=== PATIENT | female | born 1990 | race Caucasian/White ===

== ENCOUNTER 2017-02-22 16:52 | Emergency (ER) | payer BC ==
[~2017-02-22] VITALS: Ht 160 cm; Wt 81.9 kg
[2017-02-22 16:53] VITALS: BP 136/81
[2017-02-22] MEDS ORDERED: BUPR300T49 PO (17:20)
[2017-02-22] MEDS ORDERED: MONOESSA PO (17:20)
[2017-02-22] MEDS ORDERED: FLUO10CA13 PO (17:20)
[2017-02-22] MEDS ORDERED: BLUE500T PO (17:20)
[2017-02-22] MEDS ORDERED: METF10002 PO (17:20)
[2017-02-22] MEDS ORDERED: LORA0.5T PO (17:21)
[2017-02-22] MEDS ORDERED: ONDANSETRON ODT 4 MG ONE (17:26)
[2017-02-22] MEDS ORDERED: ONDANSETRON ODT 4 MG PO ONE (17:30)
== END 2017-02-22 18:37 | disposition home or self-care (01) ==
LOC: ED 18:31
DX: S43.51XA Sprain of right acromioclavicular joint, initial encounter (principal); S40.011A Contusion of right shoulder, initial encounter; W19.XXXA Unspecified fall, initial encounter; Y93.89 Activity, other specified; Y99.8 Other external cause status; Y92.410 Unspecified street and highway as the place of occurrence of the external cause
CPT/HCPCS: 72050; 73030; 99284; Q0162